=== PATIENT | male | born 1990 | race African-American/Black ===

== ENCOUNTER 2017-04-20 12:29 | Emergency (ER) | payer MEDICAID ==
[~2017-04-20] VITALS: Ht 172.7 cm; Wt 85.7 kg
[~2017-04-20 12:29] MED LIST: BENZTROPINE MESY1 MG PO; HALOPERIDOL1 MG ORAL
[2017-04-20] MEDS ORDERED: UNOBMED (12:37)
[2017-04-20 12:38] VITALS: BP 124/81
[2017-04-20] MEDS ORDERED: traMADol 50mg tab ORAL ONE (12:45)
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
[2017-04-20] MEDS ORDERED: TRAMADOL HCL50 MG ORAL (15:19)
[2017-04-20] MEDS ORDERED: IBUPROFEN600 MG ORAL (15:19)
[2017-04-20 15:22] VITALS: BP 124/81
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
== END 2017-04-20 15:26 | disposition home or self-care (01) ==
LOC: EMR 12:53
DX: S00.83XA Contusion of other part of head, initial encounter (principal); S00.33XA Contusion of nose, initial encounter; S00.12XA Contusion of left eyelid and periocular area, initial encounter; Y04.2XXA Assault by strike against or bumped into by another person, initial encounter; Y92.199 Unspecified place in other specified residential institution as the place of occurrence of the external cause; R51 Headache
CPT/HCPCS: 70450; 70486; 99284